=== PATIENT | male | born 1960 | race Caucasian/White ===

== ENCOUNTER 2017-06-20 18:17 | Emergency (ER) | payer SELFPAY ==
[~2017-06-20] VITALS: Ht 175.3 cm; Wt 70.0 kg
[2017-06-20 18:19] VITALS: BP 129/86; PULSE 95; RESP 17; TEMP 98.4; O2SAT 98
[2017-06-20] MEDS ORDERED: HYDR-3533 PO (19:23)
[2017-06-20] MEDS ORDERED: DICL75TA PO (19:23)
[2017-06-20] MEDS ORDERED: ROBA750T PO (19:23)
[2017-06-20] MEDS ORDERED: KETOROLAC TROMETHAMINE 60 MG/2 ML (IM) VIAL IM ONE (19:30)
[2017-06-20] MEDS ORDERED: ACETAMINOPHEN/HYDROcodone 325 MG/5 MG TAB PO ONE (19:30)
--- NOTE | 2017-06-20 19:36 | PD ---
HPI Chief Complaint: Back/ Neck Pain or Injury Time Seen by Provider: 19:30 Travel History International Travel<30 days: No Contact w/Intl Traveler<30days: No Traveled to known affect area: No History of Present Illness HPI 57-year-old white male presents to emergency department with a three-day history of back pain after a trip and fall at the longterm. He states that the lights were out when he had tripped over someone in the longterm twisting his back. He states that he did not have significant pain at the time. He states that after laying down on the floor for several nights this has made his back much more painful. He states that he has pain in the right side of his back down into his leg. He also states he has pain up into his arm. He denies any focal numbness. He denies acute bowel or bladder changes. He denies any history of back problems in the past. Patient states the pain is moderate to severe. Worse with bending and movement. He feels more comfortable standing upright. PFSH Past Medical History Medical History: Denies Significant Hx Tetanus Vaccination: < 5 Years Past Surgical History Narrative Surgical Left forearm fracture with ORIF Social History Alcohol Use: No Tobacco Use: No Allergies-Medications (Allergen,Severity, Reaction): Coded Allergies: No Known Allergies (Unverified , 06/20/17) Reported Meds & Prescriptions Reported Meds & Active Scripts Active Robaxin (Methocarbamol) 750 Mg Tab 1,500 Mg PO TID [address] (Diclofenac Sodium) 75 Mg Tabdr 75 Mg PO BID Lortab (Hydrocodone-Acetaminophen) 5-325 Mg Tab 1 Tab PO Q6H PRN Review of Systems Except as stated in HPI: all other systems reviewed are Neg Physical Exam Narrative GENERAL: Well-developed, well-nourished in no apparent distress. Nontoxic appearing. HEAD: Normocephalic, atraumatic. EYES: Pupils equal round and reactive. Extraocular motions intact. No scleral icterus. No injection or drainage. ENT: Nose clear. Throat without erythema, tonsillar hypertrophy or exudate. Uvula midline. Airway patent. NECK: Trachea midline. Supple, nontender, moves head freely. No central bony tenderness or spasm. CARDIOVASCULAR: Regular rate and rhythm without murmurs, gallops, or rubs. RESPIRATORY: Clear to auscultation. Breath sounds equal bilaterally. No wheezes , rales, or rhonchi. GASTROINTESTINAL: Abdomen soft, non-tender, nondistended. No hepato-splenomegaly , or palpable masses. No guarding. EXTREMITIES: No clubbing, cyanosis, or edema. No joint tenderness. BACK: No central bony tenderness to palpation of dorsal lumbar spine. Patient complains of bilateral paraspinal tenderness down into both buttocks. Flexes forward 70. Heel and toe stand. No saddle anesthesia. Without deformity. No flank tenderness. NEUROLOGICAL: Awake, alert and oriented x 3 .Cranial nerves grossly intact. Motor and sensory grossly within normal limits. Normal speech. Data Data Last Documented VS Vital Signs Date Time Temp Pulse Resp B/P (MAP) Pulse Ox O2 Delivery O2 Flow Rate FiO2 06/20/17 18:19 98.4 95 17 129/86 (100) 98 Orders Orders Ketorolac Inj (Toradol Inj) (06/20/17 19:30) Orphenadrine Inj (Norflex Inj) (06/20/17 21:00) Acetamin-Hydrocod 325-5 Mg ([place] 5-325 (06/20/17 19:30) MDM Medical Decision Making Medical Screen Exam Complete: Yes Emergency Medical Condition: Yes Medical Record Reviewed: Yes Differential Diagnosis MDM: High Differential diagnoses: Fracture, sprain, strain, HNP, nerve or vascular injury Narrative Course This is back strain with lumbar radiculopathy Diagnosis Primary Impression: Lumbar radiculopathy, acute Additional Impression: Lumbar sprain Qualified Codes: S33.5XXA - Sprain of ligaments of lumbar spine, initial encounter Patient Instructions: General Instructions, Narcotic given in the ED Additional Instructions: Rest. Ice for the next 3 days followed by heat . Lortab, Robaxin and Voltaren. Consider physical therapy and follow-up MRI in 1 week if symptoms do not resolve Follow-up with a primary care doctor in one week. Return to the ER for emergencies. Med/Other Pt SpecificInfo: Prescription(s) given Scripts Methocarbamol (Robaxin) 750 Mg Tab 1500 MG PO TID for Muscle Spasm for 10 Days, TAB 0 Refills Prov: Tr Hernandez MD 06/20/[address] (Diclofenac Sodium DR) 75 Mg Tabdr 75 MG PO BID, #20 TAB 0 Refills Prov: Tr Hernandez MD 06/20/17 Hydrocodone-Acetaminophen (Lortab) 5-325 Mg Tab 1 TAB PO Q6H Y for PAIN, #12 TAB 0 Refills Prov: Tr Hernandez MD 06/20/17 Disposition: 01 DISCHARGE HOME Condition: Stable Madi Dumont Jun 20, 2017 19:36
[2017-06-20] MEDS ORDERED: ORPHENADRINE INJ 60 MG/2 ML AMP IM SCH (21:00)
== END 2017-06-20 19:42 | disposition home or self-care (01) ==
LOC: EDTENT 18:17
DX: S33.5XXA Sprain of ligaments of lumbar spine, initial encounter (principal); M54.16 Radiculopathy, lumbar region; W01.0XXA Fall on same level from slipping, tripping and stumbling without subsequent striking against object, initial encounter
CPT/HCPCS: 96372; 99284; J1885; J2360

== ENCOUNTER 2018-07-01 09:22 | Inpatient (IN) ==
[2018-07-01] MEDS ORDERED: Clindamycin 900 mg/NS Premix 900 MG/50 ML PIGGYBACK IV.SIG ONE (09:38)
[2018-07-01] MEDS ORDERED: Tetanus/Diphtheria Toxoid Adult Vaccine Inj 0.5 ML Vial IM ONE (09:38)
--- NOTE | 2018-07-01 09:43 | ED ---
HPI General Chief complaint: Skin/Abscess/Foreign Body Stated complaint: Left leg/left arm swollen Time Seen by Provider: 07/01/18 09:34 Source: patient Mode of arrival: ambulatory Limitations: no limitations History of Present Illness HPI narrative: Patient is a 58-year-old male who presents to the emergency room for evaluation of bug bite with surrounding infection. Patient reports that 3 weeks ago, he was working in the [employer] and thinks that he may have been bitten by a bug. Reports that he noticed increased swelling to his left upper extremity. Patient reports that 2 weeks ago, he was bit on his left lower extremity, reports that the skin is opening up and his whole leg is red. Reports that for the past 2 days, he has been having fevers and chills. Patient is concerned that the bug bite got infected. Patient reports that his tetanus is not up-to-date, he has no allergies to medications. Patient with no other complaints. Related Data Home Medications Medication Instructions Recorded Confirmed No Known Home Medications 07/01/18 07/01/18 Allergies Allergy/AdvReac Type Severity Reaction Status Date / Time No Known Allergies Allergy NONE Uncoded 07/01/18 09:50 Review of Systems ROS: all other systems reviewed are negative PMFSH History History Provided By: Patient Social History Social History Substance History: No History of Abuse Second Hand Smoke Exposure: Yes Smoking Status: Heavy tobacco smoker Tobacco Type: Cigarettes How Often Do You Have a Drink Containing Alcohol: Monthly or less Recent Travel in [facility] within the Last 8 Weeks: No Recent Out of Country Travel within the Last 8 Weeks: No Exam Narrative Exam Narrative: GENERAL: Mild distress SKIN: Focused skin assessment warm/dry. Patient with open skin to his RUE - he has what appears to be a nonfluctuant abscess with surrounding erythema and redness. Patient with RLE: draining abscess with surrounding erythema - he has redness to his right ankle to right knee - cellulitis is circumfrential HEAD: Atraumatic. Normocephalic. EYES: Pupils equal and round. No scleral icterus. No injection or drainage. ENT: No nasal bleeding or discharge. Mucous membranes pink and moist. NECK: Trachea midline. No JVD. CARDIOVASCULAR: Regular rate and rhythm. No murmur appreciated. RESPIRATORY: No accessory muscle use. Clear to auscultation. Breath sounds equal bilaterally. GASTROINTESTINAL: Abdomen soft, non-tender, nondistended. Hepatic and splenic margins not palpable. MUSCULOSKELETAL: No obvious deformities. No clubbing. No cyanosis. No edema. NEUROLOGICAL: Awake and alert. No obvious cranial nerve deficits. Motor grossly within normal limits. Normal speech. PSYCHIATRIC: Appropriate mood and affect; insight and judgment normal. Course Initial Documented Vital Signs Temperature 97.8 F 07/01/18 09:27 Pulse Rate 105 H 07/01/18 09:27 Respiratory Rate 18 07/01/18 09:27 Blood Pressure 159/94 H 07/01/18 09:27 Pulse Oximetry 97 07/01/18 09:27 Last Documented Vital Signs Temperature 97.8 F 07/01/18 09:27 Pulse Rate 105 H 07/01/18 09:27 Respiratory Rate 18 07/01/18 09:27 Blood Pressure 159/94 H 07/01/18 09:27 Pulse Oximetry 97 07/01/18 09:27 Medical Decision Making MDM Narrative Medical decision making narrative: During the course of the patients emergency department visit, the patients history, examination, and differential diagnosis were reviewed with the patient. The patient was placed on a employment office clerk with oximetry and frequent blood pressure monitoring. The patient had an IV access obtained and blood work sent for analysis. The patient was initially provided IV Clindamycin as well as tetanus booster The patients laboratory studies were reviewed and remarkable for: wbc 17.7, hgb 15.4, hct 45.3, platelet 266 sodium 135, chloride 102, potassium 4.2, bun 12, cr 1.29, glucose 89 Patient with SIRS criteria with wbc of 17.7 and tachycardia Patient reports "I feel horrible." Patient will require admission to the hospital. case reviewed with Dr. Smart who accepts pt to service Medical Screen Exam Complete: Yes Emergency Medical Condition: Yes Differential Diagnosis Differential Diagnosis: Abscess with cellulitis Medical Records Medical records reviewed: Yes I reviewed the patient's medical records. Lab Data Lab results reviewed: Yes I reviewed the patient's lab results. Result diagrams: 07/01/18 09:45 07/01/18 09:45 Lab Results 07/01/18 07/01/18 07/01/18 Range/Units 09:45 09:45 09:50 WBC 17.7 H (4.0-11.0) th/mm3 RBC 4.76 (4.50-5.90) mil/mm3 Hgb 15.4 (13.0-17.0) gm/dL Hct 45.3 (39.0-51.0) % MCV 95.1 (80.0-100.0) fL MCH 32.4 (27.0-34.0) pg MCHC 34.0 (32.0-36.0) % RDW 13.5 (11.6-17.2) % Plt Count 266 (150-450) th/mm3 MPV 8.3 (7.0-11.0) fL Neut % (Auto) 81.5 H (16.0-70.0) % Lymph % (Auto) 8.2 L (9.0-44.0) % [place] % (Auto) 9.0 H (0.0-8.0) % Eos % (Auto) 0.8 (0.0-4.0) % Baso % (Auto) 0.5 (0.0-2.0) % Neut # (Auto) 14.5 H (1.8-7.7) th/mm3 Lymph # (Auto) 1.5 (1.0-4.8) th/mm3 [place] # (Auto) 1.6 H (0.0-0.9) th/mm3 Eos # (Auto) 0.1 (0.0-0.4) th/mm3 Baso # (Auto) 0.1 (0.0-0.2) th/mm3 WBC Differential . Differential Comment Auto diff final Sodium 135 L (136-145) meq/L Potassium 4.2 (3.5-5.1) meq/L Chloride 102 (98-107) meq/L Carbon Dioxide 26.7 (21.0-32.0) meq/L Anion Gap 6 (5-15) meq/L BUN 12 (7-18) mg/dL Creatinine 1.29 (0.60-1.30) mg/dL Estimated GFR 57 L (>89) mL/min Random Glucose 89 (74-106) mg/dL Lactic Acid 0.9 (0.4-2.0) mmol/L Calcium 8.8 (8.5-10.1) mg/dL Discharge Plan Discharge Disposition Patient Disposition: 30 Still Patient Discharge Condition Condition: Serious Discharge Details Diagnosis: SIRS (systemic inflammatory response syndrome), Cellulitis Physicians Team ED Provider: Vanna Valdez Primary Care Provider: Primary Care Lissa Lopez Rxs /Orders / Referrals /Forms Prescriptions: No Action No Known Home Medications RF: 0 Status ED Status: Admitted Observation Patient
[2018-07-01 10:04] LABS: Baso # (Auto) 0.1 th/mm3 (0.0-0.2); Baso % (Auto) 0.5 % (0.0-2.0); Eos # (Auto) 0.1 th/mm3 (0.0-0.4); Eos % (Auto) 0.8 % (0.0-4.0); Hematocrit 45.3 % (39.0-51.0); Hemoglobin 15.4 gm/dL (13.0-17.0); Lymph # (Auto) 1.5 th/mm3 (1.0-4.8); Lymph % (Auto) 8.2 % (9.0-44.0); Mean Corpuscular Hemoglobin 32.4 pg (27.0-34.0); Mean Corpuscular Volume 95.1 fL (80.0-100.0); Mean Platelet Volume 8.3 fL (7.0-11.0); Mono # (Auto) 1.6 th/mm3 (0.0-0.9); Neut # (Auto) 14.5 th/mm3 (1.8-7.7); Neut % (Auto) 81.5 % (16.0-70.0); Platelet Count 266 th/mm3 (150-450); Red Blood Count 4.76 mil/mm3 (4.50-5.90); Red Cell Distribution Width 13.5 % (11.6-17.2); White Blood Count 17.7 th/mm3 (4.0-11.0)
[2018-07-01 10:20] LABS: Calcium 8.8 mg/dL (8.5-10.1); Carbon Dioxide 26.7 meq/L (21.0-32.0); Potassium 4.2 meq/L (3.5-5.1)
[2018-07-01] MEDS ORDERED: Morphine Sulfate Inj 2 MG/ML Vial IV.PUSH ONE (10:29)
[2018-07-01] MEDS ORDERED: Ketorolac Inj 30 MG/ML (IVP) Vial IV.PUSH ONE (11:35)
[2018-07-01] MEDS ORDERED: Vancomycin Inj 1 GM/200 ML PIGGYBACK IV.SIG ONE (12:24)
[2018-07-01] MEDS ORDERED: Vancomycin Consult Pharmacy OTHER PRN (12:30)
--- NOTE | 2018-07-01 12:40 | P.HP ---
History of Present Illness Primary Care Physician: No Primary Care Physician Chief Complaint: left leg swelling History of Present Illness: patient is a 58 y/o male with no significant past medical history who presented to ER with swelling , redness and pain to the left leg. 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 he says that he noticed some swelling and redness over the lateral aspect of his left leg about a week ago. but it started to get worse two days ago and he started to have moderate to severe pain at the site along with fever and chills. he says that ' it started to drain on its own'.he says that he had some infection of the left elbow about a month ago which seems to be healing. Review of Systems All other systems reviewed negative except as stated in HPI PMFSH - History History Provided By: Patient - Medical History Medical History: Medical History (Last Updated 07/01/18 @ 12:36 by Micaela Vee MD) Patient denies significant medical history - Family History Family History: Family History (Last Updated 07/01/18 @ 12:37 by Micaela Vee MD) Other Patient denies medical problems - Tobacco History Second Hand Smoke Exposure: Yes Tobacco Use In Past 30 Days: Yes Smoking Status: Heavy tobacco smoker Tobacco Type: Cigarettes - Alcohol History How Often Do You Have a Drink Containing Alcohol: Monthly or less - Substance Use History Substance History: No History of Abuse - Travel History Recent Travel in the [place] Within the Last 8 Weeks: No Recent Travel Out of the Country Within the Last 8 Weeks: No - Immunization History Tetanus Immunization: >5 Years Hx Influenza Vaccine This Season: No Medications and Allergies Active Medications: Active Medications Sodium Chloride (Ns Flush) 2 ml IV.FLUSH PRN PRN PRN Reason: FLUSH AFTER USING IV ACCESS Last Admin: 07/01/18 09:50 Dose: 2 ml Allergies Allergy/AdvReac Type Severity Reaction Status Date / Time No Known Allergies Allergy NONE Uncoded 07/01/18 09:50 Home Medications Medication Instructions Recorded Confirmed Type No Known Home Medications 07/01/18 07/01/18 History Exam Vital signs: Vital Signs 07/01/18 09:27 07/01/18 11:41 Temperature 97.8 F Pulse Rate 105 H Respiratory Rate 18 16 Blood Pressure 159/94 H Pulse Oximetry 97 Intake & Output 06/30/18 07/01/18 07/01/18 18:59 06:59 18:59 Intake Total 50 / 50 Balance 50 / 50 Weight 68.039 kg Intake: IV 50 / 50 Cleocin 900 mg/NS Premix 900 mg 50 / 50 In 50 ml @ 100 mls/hr IV.SIG ONCE ONE Rx#:[id number] - Constitutional no acute distress - Routine HEENT Exam Eye: Present: PERRL - Routine Neck Exam Present: supple - Routine Respiratory Exam Present: CTA bilaterally - Routine Cardiovascular Exam Present: RRR - Routine Abdominal Exam Present: soft - Routine Extremities Exam Comments: swelling of the left leg and left elbow. - Routine Skin Exam Present: erythema (over the left leg and mild erythema over the left elbow.) - Routine Neurological Exam Present: alert, oriented X3 Results - Labs CBC & Chem 7: 07/01/18 09:45 07/01/18 09:45 Labs: Laboratory Results - last 24 hr 07/01/18 07/01/18 07/01/18 09:45 09:45 09:50 WBC 17.7 H RBC 4.76 Hgb 15.4 Hct 45.3 MCV 95.1 MCH 32.4 MCHC 34.0 RDW 13.5 Plt Count 266 MPV 8.3 Neut % (Auto) 81.5 H Lymph % (Auto) 8.2 L [place] % (Auto) 9.0 H Eos % (Auto) 0.8 Baso % (Auto) 0.5 Neut # (Auto) 14.5 H Lymph # (Auto) 1.5 [place] # (Auto) 1.6 H Eos # (Auto) 0.1 Baso # (Auto) 0.1 WBC Differential . Differential Comment Auto diff final Sodium 135 L Potassium 4.2 Chloride 102 Carbon Dioxide 26.7 Anion Gap 6 BUN 12 Creatinine 1.29 Estimated GFR 57 L Random Glucose 89 Lactic Acid 0.9 Calcium 8.8 Caprini VTE Risk Assessment Caprini VTE Risk Assessment: No/Low Risk (score <= 1) Caprini Risk Assessment Model: Point Value = 1 Point Value = 2 Point Value = 3 Point Value = 5 Age 41-60 Minor surgery BMI > 25 kg/m2 Swollen legs Varicose veins or History of unexplained or recurrent spontaneous Oral contraceptives or hormone replacement Sepsis (< 1 month) Serious lung disease, including pneumonia (< 1 month) Abnormal pulmonary function Acute myocardial infarction Congestive heart failure (< 1 month) History of inflammatory bowel disease Medical patient at bed rest Age 61-74 Arthroscopic surgery Major open surgery (> 45 min) Laparoscopic surgery (> 45 min) Malignancy Confined to bed (> 72 hours) Immobilizing plaster cast Central venous access Age >= 75 History of VTE Family history of VTE Factor V Leiden Prothrombin [id number] Lupus anticoagulant Anticardiolipin antibodies Elevated serum homocysteine Heparin-induced thrombocytopenia Other congenital or acquired thrombophilia Stroke (< 1 month) Elective arthroplasty Hip, pelvis, or leg fracture Acute spinal cord injury (< 1 month) Prophylaxis Regimen: Total Risk Factor Score Risk Level Prophylaxis Regimen 0-1 Low Early ambulation 2 Moderate Order ONE of the following: *Sequential Compression Device (SCD) *Heparin 5000 units SQ BID 3-4 Higher Order ONE of the following medications: *Heparin 5000 units SQ TID *Enoxaparin/Lovenox 40 mg SQ daily (WT < 150 kg, CrCl > 30 mL/min) *Enoxaparin/Lovenox 30 mg SQ daily (WT < 150 kg, CrCl > 10-29 mL/min) *Enoxaparin/Lovenox 30 mg SQ BID (WT < 150 kg, CrCl > 30 mL/min) AND/OR *Sequential Compression Device (SCD) 5 or more Highest Order ONE of the following medications: *Heparin 5000 units SQ TID (Preferred with Epidurals) *Enoxaparin/Lovenox 40 mg SQ daily (WT < 150 kg, CrCl > 30 mL/min) *Enoxaparin/Lovenox 30 mg SQ daily (WT < 150 kg, CrCl > 10-29 mL/min) *Enoxaparin/Lovenox 30 mg SQ BID (WT < 150 kg, CrCl > 30 mL/min) AND *Sequential Compression Device (SCD) Assessment and Plan - Plan A/P -cellulitis of the left leg start on broad-spectrum IV antibiotics- keep the left leg elevated- will continue with pain control and obtain the cultures. will check soft tissue sonogram of the left leg. received Tetanus vaccination in ER. Discussed Condition With: ER physician and the patient. Discharge Planning: pending clinical course.
--- NOTE | 2018-07-01 13:07 | US ---
EXAM DATE: 07/01/2018 12:52 PM EDT AGE/SEX: 58 years / Male INDICATIONS: Left leg abscess. CLINICAL DATA: This is the patient's initial encounter. Patient reports that signs and symptoms have been present for 4 - 6 days and indicates a pain score of 10/10. MEDICAL/SURGICAL HISTORY: . Left leg abscess. None. COMPARISON: No prior exams available for comparison. FINDINGS: Ultrasound of the left lateral calf inferior to the knee is performed. There is diffuse subcutaneous edema. A 2.2 x 0.5 x 1.5 cm focal fluid collection is seen in subcutaneous tissues which may reflect a small abscess. CONCLUSION: 1. Diffuse subcutaneous edema with more focal fluid collection as above which can represent a develo ping abscess. Electronically signed by: Apolinar Anthony MD 07/01/2018 1:06 PM EDT
[2018-07-01] MEDS: Piperacil/Tazo 3.375 GM Premix 50 ML IV.SIG SCH ×2 (13:49→20:40)
[2018-07-01] MEDS: Vancomycin Inj 1,000 MG in Sodium Chlor 0.9% Inj 250 ML IV.SIG SCH (15:04)
[2018-07-01] MEDS: Ketorolac Inj 30 MG/ML (IVP) Vial IV.PUSH PRN ×2 (15:12→21:18)
[2018-07-01] MEDS: ALPRAZolam 0.25 MG Tablet PO PRN (15:52)
[2018-07-02] MEDS: Vancomycin Inj 1,000 MG in Sodium Chlor 0.9% Inj 250 ML IV.SIG SCH ×2 (01:13→14:18)
[2018-07-02] MEDS: Piperacil/Tazo 3.375 GM Premix 50 ML IV.SIG SCH ×4 (02:53→21:06)
[2018-07-02] MEDS: Ketorolac Inj 30 MG/ML (IVP) Vial IV.PUSH PRN ×2 (02:54→21:04)
[2018-07-02 06:07] LABS: Baso # (Auto) 0.1 th/mm3 (0.0-0.2); Baso % (Auto) 0.7 % (0.0-2.0); Eos # (Auto) 0.4 th/mm3 (0.0-0.4); Eos % (Auto) 4.3 % (0.0-4.0); Hemoglobin 13.8 gm/dL (13.0-17.0); Lymph # (Auto) 1.1 th/mm3 (1.0-4.8); Lymph % (Auto) 11.5 % (9.0-44.0); Mean Corpuscular HGB Conc 33.6 % (32.0-36.0); Mean Corpuscular Hemoglobin 32.5 pg (27.0-34.0); Mean Corpuscular Volume 96.9 fL (80.0-100.0); Mean Platelet Volume 9.2 fL (7.0-11.0); Mono # (Auto) 0.8 th/mm3 (0.0-0.9); Mono % (Auto) 8.8 % (0.0-8.0); Neut % (Auto) 74.7 % (16.0-70.0); Platelet Count 198 th/mm3 (150-450); Red Blood Count 4.23 mil/mm3 (4.50-5.90); Red Cell Distribution Width 13.5 % (11.6-17.2); White Blood Count 9.4 th/mm3 (4.0-11.0)
[2018-07-02] MEDS ORDERED: Sodium Chloride 0.9% 2 ML Flush PRN IV.FLUSH (10:24)
[2018-07-02] MEDS: Sod Chloride 0.9% Inj 1,000 ML IV.CONT SCH (10:26)
[2018-07-02] MEDS: Acetaminophen 325 MG Tablet PO PRN (10:35)
--- NOTE | 2018-07-02 12:01 | P.PN ---
Subjective Interval history: Follow up on patient with LLE cellulitis/abscess. Patient seen and examined. Patient complaining of LLE pain. He thinks the swelling has improved. He states the pain is the same. He states he has sweats but has not been running a fever. He thinks he was bit by a spider. He works in construction. Physical Exam Vital signs: Vital Signs 07/01/18 11:41 07/01/18 13:48 07/01/18 16:00 Temperature 97.8 F Pulse Rate 69 Respiratory Rate 16 16 16 Blood Pressure 118/72 Pulse Oximetry 100 07/01/18 20:00 07/02/18 00:00 07/02/18 04:00 Temperature 98.7 F 97.9 F 97.6 F Pulse Rate 76 60 65 Respiratory Rate 18 18 18 Blood Pressure 127/67 116/64 105/63 Pulse Oximetry 99 98 99 07/02/18 08:35 Temperature 97.7 F Pulse Rate 65 Respiratory Rate 18 Blood Pressure 139/87 Pulse Oximetry Intake & Output 07/01/18 07/02/18 07/02/18 18:59 06:59 18:59 Intake Total 350 / 350 3850 / 3850 50 / 50 Balance 350 / 350 3850 / 3850 50 / 50 Weight 68.039 kg Intake: IV 350 / 350 350 / 350 50 / 50 Cleocin 900 mg/NS Premix 900 mg 50 / 50 In 50 ml @ 100 mls/hr IV.SIG ONCE ONE Rx#:[id number] Zosyn 3.375 GM Premix 50 ML @ 50 / 50 100 / 100 50 / 50 100 mls/hr IV.SIG Q6H [facility] Rx#: [id number] Vancomycin Inj 1,000 MG In NS 250 / 250 250 / 250 Inj 250 ML @ 250 mls/hr IV.SIG Q12H [facility] Rx#:[id number] Oral 3500 / 3500 Other: # Voids 2 4 Narrative: GENERAL: Thin well developed male patient, awake and alert. In no acute distress. SKIN: Warm and dry. +open wound left lower leg over lateral aspect of the coy , +erythema, warmth and edema, tender to palpation HEAD: Atraumatic. Normocephalic. EYES: Pupils equal and round. No scleral icterus. No injection or drainage. ENT: No nasal bleeding or discharge. Mucous membranes pink and moist. NECK: Trachea midline. CARDIOVASCULAR: Regular rate and rhythm. RESPIRATORY: No accessory muscle use. Clear to auscultation. Breath sounds equal bilaterally. GASTROINTESTINAL: Abdomen soft, non-tender, nondistended. +BS. MUSCULOSKELETAL: Extremities without clubbing, cyanosis, or edema. No obvious deformities. NEUROLOGICAL: Awake and alert. No obvious cranial nerve deficits. Motor grossly within normal limits. Able to move all extremities spontaneously. Normal speech. PSYCHIATRIC: Appropriate mood and affect; insight and judgment normal. Results - Labs CBC & Chem 7: 07/02/18 04:25 07/01/18 09:45 Laboratory Results - last 24 hr 07/02/18 04:25 WBC 9.4 RBC 4.23 L Hgb 13.8 Hct 41.0 MCV 96.9 MCH 32.5 MCHC 33.6 RDW 13.5 Plt Count 198 MPV 9.2 Neut % (Auto) 74.7 H Lymph % (Auto) 11.5 [place] % (Auto) 8.8 H Eos % (Auto) 4.3 H Baso % (Auto) 0.7 Neut # (Auto) 7.0 Lymph # (Auto) 1.1 [place] # (Auto) 0.8 Eos # (Auto) 0.4 Baso # (Auto) 0.1 WBC Differential . Differential Comment Auto diff final Microbiology 07/01/18 09:50 Blood - Peripheral Aerobic Blood Culture - Preliminary No growth in 1 day 07/01/18 09:50 Blood - Peripheral Anaerobic Blood Culture - Preliminary No growth in 1 day 07/01/18 09:45 Blood - Peripheral Aerobic Blood Culture - Preliminary No growth in 1 day 07/01/18 09:45 Blood - Peripheral Anaerobic Blood Culture - Preliminary No growth in 1 day 07/01/18 13:55 Fluid - Other Gram Stain - Final - Imaging Impressions Lower Extremity Ultrasound 07/01/18 00:00 CONCLUSION: 1. Diffuse subcutaneous edema with more focal fluid collection as above which can represent a developing abscess. Assessment and Plan - Plan 58 y/o male with no significant past medical history who presented to ER with swelling , redness and pain to the left leg. Sepsis with tachycardia, leukocytosis with white count of 17.7 secondary to LLE abscess -white count improved to 9.4 -patient is afebrile, continue to monitor vitals -continue on IV antibiotics LLE cellulitis/abscess, ? spider bite soft tissue US diffuse subcutaneous edema with focal fluid collection -GS consulted, appreciate assistance. Make NPO. IVF ordered. -Continue on IV Zosyn and Vancomycin -wound culture pending, follow up on results -keep left leg elevated -pain medication with bowel regimen Hyponatremia, mild -monitor Na level as indicated DVT prophylaxis -will hold on chemical prophylaxis for possible I&D procedure
[2018-07-02 16:51] LABS: Amphetamine Screen,Urine Neg (Neg); Barbiturate Screen,Urine Neg (Neg); Cannabinoid Screen,Urine Neg (Neg); Cocaine Screen,Urine Pos (Neg)
[2018-07-02 16:58] LABS: Opiate Screen,Urine Neg (Neg)
--- NOTE | 2018-07-02 17:02 | P.PNVS ---
Subjective Subjective/Hospital Course: 07/02/2018 Patient states that about 4-5 days ago he was bitten by some insect and started developing swelling in the left lower extremity which is now pretty extensive and started to drain purulent material as the consultation Physical examination reveals diffuse cellulitis of the left lower extremity lateral aspect in the area of skin erosion with underlying abscess that is already draining. Abscesses is measuring about 1 x 3 cm longitudinal groove appearing structure and going to subcutaneous tissue There is some skin tissue bridging at and this is been open at the bedside and drained Area irrigated with peroxide and packed Patient should remain on intravenous antibiotics till cultures of back and depending on the cultures this can be adjusted Wound care orders given Most likely this is going to heal on its own but will take a while, but patient might need additional debridement if infected area does not start healing will follow Objective Vital Signs / I&O: Vital Signs 07/01/18 20:00 07/02/18 00:00 07/02/18 04:00 Temperature 98.7 F 97.9 F 97.6 F Pulse Rate 76 60 65 Respiratory Rate 18 Blood Pressure 127/67 116/64 105/63 Pulse Oximetry 99 98 99 07/02/18 08:35 07/02/18 11:44 07/02/18 15:52 Temperature 97.7 F 97.8 F 97.8 F Pulse Rate 65 80 75 Respiratory Rate 18 Blood Pressure 139/87 131/82 156/91 H Pulse Oximetry 100 100 Intake & Output 07/01/18 07/02/18 07/02/18 18:59 06:59 18:59 Intake Total 350 / 350 3850 / 3850 350 / 350 Balance 350 / 350 3850 / 3850 350 / 350 Weight 68.039 kg Intake: IV 350 / 350 350 / 350 350 / 350 Cleocin 900 mg/NS Premix 900 mg 50 / 50 In 50 ml @ 100 mls/hr IV.SIG ONCE ONE Rx#:[id number] Zosyn 3.375 GM Premix 50 ML @ 50 / 50 100 / 100 100 / 100 100 mls/hr IV.SIG Q6H [facility] Rx#: [id number] Vancomycin Inj 1,000 MG In NS 250 / 250 250 / 250 250 / 250 Inj 250 ML @ 250 mls/hr IV.SIG Q12H [facility] Rx#:[id number] Oral 3500 / 3500 Other: # Voids 2 4 Laboratory Results - last 24 hr 07/02/18 04:25 WBC 9.4 RBC 4.23 L Hgb 13.8 Hct 41.0 MCV 96.9 MCH 32.5 MCHC 33.6 RDW 13.5 Plt Count 198 MPV 9.2 Neut % (Auto) 74.7 H Lymph % (Auto) 11.5 Early % (Auto) 8.8 H Eos % (Auto) 4.3 H Baso % (Auto) 0.7 Neut # (Auto) 7.0 Lymph # (Auto) 1.1 Early # (Auto) 0.8 Eos # (Auto) 0.4 Baso # (Auto) 0.1 WBC Differential . Differential Comment Auto diff final Microbiology 07/01/18 13:55 Gram Stain - Final Fluid - Other Wound Culture - Preliminary S. aureus MRSA Group A beta Strep 07/01/18 09:50 Aerobic Blood Culture - Preliminary Blood - Peripheral No growth in 1 day Anaerobic Blood Culture - Preliminary No growth in 1 day 07/01/18 09:45 Aerobic Blood Culture - Preliminary Blood - Peripheral No growth in 1 day Anaerobic Blood Culture - Preliminary No growth in 1 day Impressions Lower Extremity Ultrasound 07/01/18 00:00 CONCLUSION: 1. Diffuse subcutaneous edema with more focal fluid collection as above which can represent a developing abscess.
[2018-07-02] MEDS: Sodium Chloride 0.9% 2 ML Flush BID IV.FLUSH SCH (21:06)
[2018-07-02] MEDS: Senna/Docusate Sodium 8.6/50 MG Tablet PO SCH (21:07)
[2018-07-03] MEDS: Sod Chloride 0.9% Inj 1,000 ML IV.CONT SCH ×2 (00:05→14:12)
[2018-07-03] MEDS: Vancomycin Inj 1,000 MG in Sodium Chlor 0.9% Inj 250 ML IV.SIG SCH ×2 (02:17→15:03)
[2018-07-03] MEDS: Piperacil/Tazo 3.375 GM Premix 50 ML IV.SIG SCH ×4 (03:28→21:04)
[2018-07-03] MEDS: Ketorolac Inj 30 MG/ML (IVP) Vial IV.PUSH PRN ×2 (07:48→16:19)
[2018-07-03] MEDS: Sodium Chloride 0.9% 2 ML Flush BID IV.FLUSH SCH ×2 (08:01→21:12)
[2018-07-03] MEDS: Senna/Docusate Sodium 8.6/50 MG Tablet PO SCH (08:29)
--- NOTE | 2018-07-03 09:02 | P.PNWCN ---
Wound Care Nurse Consult Additional information: Patient not seen today for wound management of LLE. Patient was seen on 2017 by Doctor Calvin for I&D of LLE abscess. Doctor Calvin wrote wound care orders post I&D. Please Defer all concerns over wound to LLE and orders for wound care to Doctor Cavlin. Wound care inpatient is signing off.
--- NOTE | 2018-07-03 10:06 | P.PN ---
Subjective Interval history: Follow up on patient with LLE cellulitis/abscess. Patient seen and examined. Patient complaining of poorly controlled pain in the LLE especially in the left knee. He is not sure whether or not the left leg is getting better. He denies any fever or chills. He denies any chest pain or shortness of breath. Discussed with patient testing positive for cocaine. Patient denies any IV drug use. Physical Exam Vital signs: Vital Signs 07/02/18 11:44 07/02/18 15:52 07/02/18 20:00 Temperature 97.8 F 97.8 F 97.6 F Pulse Rate 80 75 85 Respiratory Rate 18 18 16 Blood Pressure 131/82 156/91 H 130/71 Pulse Oximetry 100 100 98 07/03/18 04:00 07/03/18 07:58 Temperature 97.7 F Pulse Rate 62 63 Respiratory Rate 20 16 Blood Pressure 143/79 H 136/80 Pulse Oximetry 96 97 Intake & Output 07/02/18 07/03/18 07/03/18 18:59 06:59 18:59 Intake Total 350 / 350 1350 / 1350 50 / 50 Output Total 600 / 600 Balance 350 / 350 750 / 750 50 / 50 Weight 63.5 kg Intake: IV 350 / 350 1350 / 1350 50 / 50 NS Inj 1,000 ML @ 75 mls/hr IV. 1000 / 1000 CONT .[id number] [facility] Rx#:[id number] Zosyn 3.375 GM Premix 50 ML @ 100 / 100 100 / 100 50 / 50 100 mls/hr IV.SIG Q6H [facility] Rx#: [id number] Vancomycin Inj 1,000 MG In NS 250 / 250 250 / 250 Inj 250 ML @ 250 mls/hr IV.SIG Q12H [facility] Rx#:[id number] Output: Urine 600 / 600 Other: # Voids 4 Narrative: GENERAL: Thin well developed male patient, INAD. Awake and alert. SKIN: Warm and dry. +open wound left lower leg over lateral aspect of the coy , +erythema, warmth and edema, tender to palpation, appears mildly improved. HEENT: Atraumatic. Normocephalic. Pupils equal and round. No scleral icterus. No injection or drainage. No nasal bleeding or discharge. Mucous membranes pink and moist. NECK: Trachea midline. CARDIOVASCULAR: Regular rate and rhythm. RESPIRATORY: No accessory muscle use. Clear to auscultation. Breath sounds equal bilaterally. GASTROINTESTINAL: Abdomen soft, non-tender, nondistended. +BS. MUSCULOSKELETAL: Extremities without clubbing, cyanosis, or edema. No obvious deformities. NEUROLOGICAL: Awake and alert. No obvious cranial nerve deficits. Motor grossly within normal limits. Able to move all extremities spontaneously. Normal speech. PSYCHIATRIC: Appropriate mood and affect. Results - Labs CBC & Chem 7: 07/02/18 04:25 07/01/18 09:45 Laboratory Results - last 24 hr 07/02/18 15:56 Urine Opiates Screen Neg Ur Barbiturates Screen Neg Ur Amphetamines Screen Neg U Benzodiazepines Scrn Neg Urine Cocaine Screen Pos H U Cannabinoids Screen Neg Microbiology 07/01/18 13:55 Fluid - Other Gram Stain - Final 07/01/18 13:55 Fluid - Other Wound Culture - Final S. aureus MRSA Group A beta Strep 07/01/18 09:50 Blood - Peripheral Aerobic Blood Culture - Preliminary No growth in 1 day 07/01/18 09:50 Blood - Peripheral Anaerobic Blood Culture - Preliminary No growth in 1 day 07/01/18 09:45 Blood - Peripheral Aerobic Blood Culture - Preliminary No growth in 1 day 07/01/18 09:45 Blood - Peripheral Anaerobic Blood Culture - Preliminary No growth in 1 day Assessment and Plan - Plan 58 y/o male with no significant past medical history who presented to ER with swelling , redness and pain to the left leg. Sepsis with tachycardia, leukocytosis with white count of 17.7 secondary to LLE abscess, resolved -white count improved to 9.4 -patient is afebrile, continue to monitor vitals -continue on IV antibiotics LLE cellulitis/abscess, ? spider bite soft tissue US diffuse subcutaneous edema with focal fluid collection Wound cx + MRSA and Group A beta Strep -General surgery following, appreciate assistance. Continue wound care per Dr. Calvin's instructions. -Consult infectious disease, appreciate assistance -Continue on IV Zosyn and Vancomycin -keep left leg elevated -obtain xray left tibia to r/o underlying osteomyelitis. Obtain x-ray of the left knee. -pain medication with bowel regimen. Ultram prn. Hyponatremia, mild -monitor Na level as indicated Cocaine use -Discussed cessation of illicit drug use DVT prophylaxis -Heparin Discussed Condition With: patient, nursing staff, Dr. Yoo Discharge Planning: Not ready for discharge.
[2018-07-03] MEDS ORDERED: Pharmacy Ordered Lab Info OTHER ONE (13:45)
--- NOTE | 2018-07-03 14:53 | XR ---
EXAM DATE: 07/03/2018 12:00 AM EDT AGE/SEX: 58 years / Male INDICATIONS: Pain in left knee joint, abscess inferior to left knee, possible spider bite CLINICAL DATA: This is the patient's subsequent encounter. Patient reports that signs and symptoms h ave been present for 4 - 6 days and indicates a pain score of 10/10. MEDICAL/SURGICAL HISTORY: . insect bite, abbess, pain and swelling left lower leg None. COMPARISON: C, TIBIA FIBULA LEFT 2V, 07/03/2018. . FINDINGS: Bony structures are intact and in normal alignment. Joints are intact without dislocation or signifi cant arthropathy. Osseous density is normal. Soft tissues are unremarkable. No evidence of a joint effusion. No radiopaque foreign bodies seen. CONCLUSION: Unremarkable plain films of the left knee. Electronically signed by: Stephan Gonzalez MD 07/03/2018 2:52 PM EDT
--- NOTE | 2018-07-03 14:59 | XR ---
EXAM DATE: 07/03/2018 12:00 AM EDT AGE/SEX: 58 years / Male INDICATIONS: Insect bite, soft tissue swelling and pain left lower leg, evaluate for underlying oste omyelitis CLINICAL DATA: This is the patient's subsequent encounter. Patient reports that signs and symptoms h ave been present for 4 - 6 days and indicates a pain score of 10/10. MEDICAL/SURGICAL HISTORY: . abscess left leg None. COMPARISON: No prior exams available for comparison. FINDINGS: Bony structures are intact and in normal alignment. Osseous density is normal. . Small focal subcuta neous emphysema at the insect bite area. No radiopaque foreign bodies seen. CONCLUSION: The bony structures are grossly intact. Small subcutaneous emphysema at the insect bite site Electronically signed by: Stephan Gonzalez MD 07/03/2018 2:57 PM EDT
--- NOTE | 2018-07-03 15:51 | P.CONID ---
History of Present Illness Service: ID Consult date: 07/03/18 Requesting Physician: Ana Rosa Garcia Reason for Consult: LLE abscess, s/p I&D, wound cx +MRSA and strept Primary Care Provider: No Primary Care Physician Chief Complaint: left leg swelling History of Present Illness: 58 yo male no significant past medical history developped swelling , redness and pain to the left leg over one week. H/o working outside and insect/spider bite prior. + some fever and chills. It was I+D @ b/s in ER , improved on current abx (zosyn, vancomycin) Grew MRSA, GAS from the wound Review of Systems All other systems reviewed negative except as stated in HPI PMFSH - History History Provided By: Patient - Medical / Surgical Hx Neg / Unobtainable Surgical History: No Previous Surgery - Medical History Medical History: Medical History (Last Reviewed 07/04/18 @ 14:00 by Ragini Valle MD) Patient denies significant medical history - Family History Family History: Family History (Last Reviewed 07/04/18 @ 14:00 by Ragini Valle MD) Other Patient denies medical problems - Social History I have reviewed the patient's Social History: Yes - Tobacco History Second Hand Smoke Exposure: Yes Tobacco Use In Past 30 Days: Yes Smoking Status: Current every day smoker Tobacco Type: Cigarettes - Alcohol History How Often Do You Have a Drink Containing Alcohol: 2 to 4 times a month - Substance Use History Substance History: No History of Abuse - Travel History Recent Travel in the [place] Within the Last 8 Weeks: No Recent Travel Out of the Country Within the Last 8 Weeks: No - Immunization History Tetanus Immunization: >5 Years Hx Influenza Vaccine This Season: No Medications and Allergies Active Medications: Active Medications Acetaminophen (Tylenol) 650 mg PO Q4H PRN PRN Reason: fever/pain 1-10 Last Admin: 07/02/18 10:35 Dose: 650 mg Alprazolam (Xanax) 0.125 mg PO Q6H PRN PRN Reason: anxiety Last Admin: 07/01/18 15:52 Dose: 0.125 mg Heparin Sodium (Porcine) (Heparin Inj) 5,000 units SQ Q12HR [facility] Piperacillin/Tazobactam/Dextrose (Zosyn 3.375 Gm Premix) 50 mls @ 100 mls/hr IV.SIG Q6H [facility] Last Infusion: 07/03/18 14:03 Dose: Infused Vancomycin HCl 1,250 mg/ (Sodium Chloride) 262.5 mls @ 250 mls/hr IV.SIG Q12H [facility] Ketorolac Tromethamine (Toradol Inj) 15 mg IV.PUSH Q6H PRN PRN Reason: breakthrough pain Stop: 07/06/18 12:30 Last Admin: 07/03/18 07:48 Dose: 15 mg Miscellaneous Information ([facility] Ordered Lab Info) 1 each OTHER ONCE ONE Stop: 07/05/18 13:46 Pharmacy Profile Note (Vancomycin Consult Pharmacy) 1 each OTHER UNSCH PRN PRN Reason: Pharmacy to dose Senna/Docusate Sodium (Jaja-Colace) 1 tab PO BID [facility] Last Admin: 07/03/18 08:29 Dose: Not Given Sodium Chloride (Ns Flush) 2 ml IV.FLUSH BID [facility] Last Admin: 07/03/18 08:01 Dose: Not Given Sodium Chloride (Ns Flush) 2 ml IV.FLUSH PRN PRN PRN Reason: FLUSH AFTER USING IV ACCESS Tramadol HCl (Ultram) 50 mg PO Q8H PRN PRN Reason: PAIN SCALE 1 TO 10 Last Admin: 07/03/18 13:29 Dose: 50 mg Allergies Allergy/AdvReac Type Severity Reaction Status Date / Time No Known Allergies Allergy NONE Uncoded 07/01/18 09:50 Home Medications Medication Instructions Recorded Confirmed Type No Known Home Medications 07/01/18 07/01/18 History Exam Vital signs: Vital Signs 07/02/18 15:52 07/02/18 20:00 07/03/18 04:00 Temperature 97.8 F 97.6 F Pulse Rate 75 85 62 Respiratory Rate 18 16 20 Blood Pressure 156/91 H 130/71 143/79 H Pulse Oximetry 100 98 96 07/03/18 07:58 07/03/18 12:00 07/03/18 12:17 Temperature 97.7 F 97.8 F Pulse Rate 63 60 Respiratory Rate 16 16 18 Blood Pressure 136/80 133/77 Pulse Oximetry 97 96 07/03/18 14:10 Temperature Pulse Rate Respiratory Rate 18 Blood Pressure Pulse Oximetry Intake & Output 07/02/18 07/03/18 07/03/18 18:59 06:59 18:59 Intake Total 350 / 350 1350 / 1350 810 / 810 Output Total 600 / 600 Balance 350 / 350 750 / 750 810 / 810 Weight 63.5 kg Intake: IV 350 / 350 1350 / 1350 810 / 810 NS Inj 1,000 ML @ 75 mls/hr IV. 1000 / 1000 710 / 710 CONT .[id number] [facility] Rx#:[id number] Zosyn 3.375 GM Premix 50 ML @ 100 / 100 100 / 100 100 / 100 100 mls/hr IV.SIG Q6H [facility] Rx#: [id number] Vancomycin Inj 1,000 MG In NS 250 / 250 250 / 250 Inj 250 ML @ 250 mls/hr IV.SIG Q12H [facility] Rx#:[id number] Output: Urine 600 / 600 Other: # Voids 4 Date of Last Bowel Movement 07/03/18 - Constitutional no acute distress, thin - Routine HEENT Exam Head: Present: normocephalic, atraumatic Eye: Present: EOMI, PERRL ENT: Present: mucous membranes moist, oropharynx clear. Absent: dentition normal - Routine Neck Exam Present: supple, full ROM. Absent: JVD - Routine Respiratory Exam Present: CTA bilaterally. Absent: accessory muscle use, respiratory distress, rhonchi - Routine Cardiovascular Exam Present: RRR, S1, S2. Absent: murmur, gallop, rubs - Routine Abdominal Exam Present: soft, normoactive bowel sounds. Absent: tenderness, distended, organomegaly, mass - Routine Extremities Exam Absent: cyanosis, clubbing, edema - Routine Skin Exam Comments: L calf open deep wound with purulent grainage and some necrotic tissue present +erythema surrounding no ascending lymphangits + ipsilateral lymphadenopathy - Routine Neurological Exam Present: alert, oriented X3, CN II-XII intact, moving all extremities, vision grossly intact, hearing grossly intact, normal speech - Routine Psychiatric Exam Present: normal affect, normal thought process, cooperative Results - Labs CBC & Chem 7: 07/02/18 04:25 07/04/18 05:50 Labs: Laboratory Results - last 24 hr 07/02/18 07/03/18 15:56 14:19 Vancomycin Trough 8.9 Urine Opiates Screen Neg Ur Barbiturates Screen Neg Ur Amphetamines Screen Neg U Benzodiazepines Scrn Neg Urine Cocaine Screen Pos H U Cannabinoids Screen Neg - Imaging Impressions Knee X-Ray 07/03/18 00:00 CONCLUSION: Unremarkable plain films of the left knee. Tibia/Fibula X-Ray 07/03/18 00:00 CONCLUSION: The bony structures are grossly intact. Small subcutaneous emphysema at the insect bite site Assessment and Plan - Plan ABscess, sp bedside drainage infected with GAS, MRSA cont current abx fu clx untill final
[2018-07-03] MEDS: ALPRAZolam 0.25 MG Tablet PO PRN (16:12)
[2018-07-03] MEDS: Heparin - SQ 10,000 UNITS/ML Vial SQ SCH (21:05)
--- NOTE | 2018-07-03 21:42 | P.PNVS ---
Subjective Subjective/Hospital Course: 07/02/2018 Patient states that about 4-5 days ago he was bitten by some insect and started developing swelling in the left lower extremity which is now pretty extensive and started to drain purulent material as the consultation Physical examination reveals diffuse cellulitis of the left lower extremity lateral aspect in the area of skin erosion with underlying abscess that is already draining. Abscesses is measuring about 1 x 3 cm longitudinal groove appearing structure and going to subcutaneous tissue There is some skin tissue bridging at and this is been open at the bedside and drained Area irrigated with peroxide and packed Patient should remain on intravenous antibiotics till cultures of back and depending on the cultures this can be adjusted Wound care orders given Most likely this is going to heal on its own but will take a while, but patient might need additional debridement if infected area does not start healing will follow 07/03/2018 Cellulitis less prominent Swelling decreased should continue antibiotics Objective Vital Signs / I&O: Vital Signs 07/03/18 04:00 07/03/18 07:58 07/03/18 12:00 Temperature 97.7 F 97.8 F Pulse Rate 62 63 60 Respiratory Rate 20 16 16 Blood Pressure 143/79 H 136/80 133/77 Pulse Oximetry 96 97 96 07/03/18 12:17 07/03/18 14:10 07/03/18 16:00 Temperature 97.5 F L Pulse Rate 65 Respiratory Rate 18 18 16 Blood Pressure 185/94 H Pulse Oximetry 99 07/03/18 17:00 07/03/18 18:02 07/03/18 20:00 Temperature 97.7 F Pulse Rate 72 Respiratory Rate 18 20 Blood Pressure 165/95 H 154/86 H Pulse Oximetry 96 Intake & Output 07/03/18 07/03/18 07/04/18 06:59 18:59 06:59 Intake Total 1350 / 1350 2586 / 2586 Output Total 600 / 600 Balance 750 / 750 2586 / 2586 Weight 63.5 kg Intake: IV 1350 / 1350 1086 / 1086 NS Inj 1,000 ML @ 75 mls/hr IV. 1000 / 1000 736 / 736 CONT .[id number] [facility] Rx#:[id number] Zosyn 3.375 GM Premix 50 ML @ 100 / 100 100 / 100 100 mls/hr IV.SIG Q6H [facility] Rx#: [id number] Vancomycin Inj 1,000 MG In NS 250 / 250 250 / 250 Inj 250 ML @ 250 mls/hr IV.SIG Q12H [facility] Rx#:[id number] Oral 1500 / 1500 Output: Urine 600 / 600 Other: # Voids 2 Date of Last Bowel Movement 07/03/18 Laboratory Results - last 24 hr 07/03/18 14:19 Vancomycin Trough 8.9 Microbiology 07/01/18 09:50 Aerobic Blood Culture - Preliminary Blood - Peripheral No growth in 2 days Anaerobic Blood Culture - Preliminary No growth in 2 days 07/01/18 09:45 Aerobic Blood Culture - Preliminary Blood - Peripheral No growth in 2 days Anaerobic Blood Culture - Preliminary No growth in 2 days 07/01/18 13:55 Gram Stain - Final Fluid - Other Wound Culture - Final S. aureus MRSA Group A beta Strep Impressions Knee X-Ray 07/03/18 00:00 CONCLUSION: Unremarkable plain films of the left knee. Tibia/Fibula X-Ray 07/03/18 00:00 CONCLUSION: The bony structures are grossly intact. Small subcutaneous emphysema at the insect bite site
[2018-07-04] MEDS: Senna/Docusate Sodium 8.6/50 MG Tablet PO SCH ×3 (00:26→21:49)
[2018-07-04] MEDS: Piperacil/Tazo 3.375 GM Premix 50 ML IV.SIG SCH ×3 (01:29→13:09)
[2018-07-04] MEDS: Vancomycin Inj 1,250 MG in Sodium Chlor 0.9% Inj 250 ML IV.SIG SCH ×2 (02:15→13:58)
[2018-07-04] MEDS: ALPRAZolam 0.25 MG Tablet PO PRN ×2 (03:15→22:33)
[2018-07-04] MEDS: Ketorolac Inj 30 MG/ML (IVP) Vial IV.PUSH PRN ×2 (03:16→22:36)
[2018-07-04] MEDS: Heparin - SQ 10,000 UNITS/ML Vial SQ SCH ×2 (08:52→21:40)
[2018-07-04] MEDS: Sodium Chloride 0.9% 2 ML Flush BID IV.FLUSH SCH ×2 (08:59→21:45)
--- NOTE | 2018-07-04 10:24 | P.PN ---
Subjective Interval history: Follow up on patient with LLE cellulitis/abscess. Patient seen and examined. Patient is requesting a nicotine patch. He says the left leg is improving slowly. He continues to have pain in the left leg and left knee. He denies any fever or chills. Physical Exam Vital signs: Vital Signs 07/03/18 12:00 07/03/18 12:17 07/03/18 14:10 Temperature 97.8 F Pulse Rate 60 Respiratory Rate 16 18 18 Blood Pressure 133/77 Pulse Oximetry 96 07/03/18 16:00 07/03/18 17:00 07/03/18 18:02 Temperature 97.5 F L Pulse Rate 65 Respiratory Rate 16 18 Blood Pressure 185/94 H 165/95 H Pulse Oximetry 99 07/03/18 20:00 07/04/18 00:00 07/04/18 04:00 Temperature 97.7 F 97.6 F 98.2 F Pulse Rate 72 63 54 L Respiratory Rate 20 21 20 Blood Pressure 154/86 H 118/74 151/84 H Pulse Oximetry 96 95 96 07/04/18 08:16 Temperature 97.6 F Pulse Rate 60 Respiratory Rate 20 Blood Pressure 162/80 H Pulse Oximetry 95 Intake & Output 07/03/18 07/04/18 07/04/18 18:59 06:59 18:59 Intake Total 2586 / 2586 362.5 / 362.5 50 / 50 Output Total 800 / 800 Balance 2586 / 2586 -437.5 / -437.5 50 / 50 Weight 63.2 kg Intake: IV 1086 / 1086 362.5 / 362.5 50 / 50 NS Inj 1,000 ML @ 75 mls/hr IV. 736 / 736 CONT .[id number] [facility] Rx#:[id number] Zosyn 3.375 GM Premix 50 ML @ 100 / 100 100 / 100 50 / 50 100 mls/hr IV.SIG Q6H [facility] Rx#: [id number] Vancomycin Inj 1,000 MG In NS 250 / 250 Inj 250 ML @ 250 mls/hr IV.SIG Q12H [facility] Rx#:[id number] Vancomycin Inj 1,250 MG In NS 262.5 / 262.5 Inj 250 ML @ 250 mls/hr IV.SIG Q12H [facility] Rx#:[id number] Oral 1500 / 1500 Output: Urine 800 / 800 Other: # Voids 2 Date of Last Bowel Movement 07/03/18 07/03/18 Narrative: GENERAL: Thin well developed male patient, INAD. Awake and alert. Appears comfortable. SKIN: Warm and dry. +open wound left lower leg over lateral aspect of the coy , +erythema, warmth and edema, tender to palpation, appears much improved with decreasing size of wound opening, less erythema. +scant amount of seropurulent drainage noted on dressing. HEENT: Atraumatic. Normocephalic. Pupils equal and round. No scleral icterus. No injection or drainage. No nasal bleeding or discharge. Mucous membranes pink and moist. NECK: Trachea midline. CARDIOVASCULAR: Regular rate and rhythm. RESPIRATORY: No accessory muscle use. Clear to auscultation. Breath sounds equal bilaterally. GASTROINTESTINAL: Abdomen soft, non-tender, nondistended. +BS. MUSCULOSKELETAL: Extremities without clubbing, cyanosis, or edema. No obvious deformities. NEUROLOGICAL: Awake and alert. No obvious cranial nerve deficits. Motor grossly within normal limits. Able to move all extremities spontaneously. Normal speech. PSYCHIATRIC: Appropriate mood and affect. Results - Labs CBC & Chem 7: 07/02/18 04:25 07/04/18 05:50 Laboratory Results - last 24 hr 07/03/18 07/04/18 14:19 05:50 BUN 5 L Creatinine 0.93 Estimated GFR 84 L Vancomycin Trough 8.9 Microbiology 07/01/18 09:50 Blood - Peripheral Aerobic Blood Culture - Preliminary No growth in 2 days 07/01/18 09:50 Blood - Peripheral Anaerobic Blood Culture - Preliminary No growth in 2 days 07/01/18 09:45 Blood - Peripheral Aerobic Blood Culture - Preliminary No growth in 2 days 07/01/18 09:45 Blood - Peripheral Anaerobic Blood Culture - Preliminary No growth in 2 days 07/01/18 13:55 Fluid - Other Gram Stain - Final 07/01/18 13:55 Fluid - Other Wound Culture - Final S. aureus MRSA Group A beta Strep - Imaging Impressions Knee X-Ray 07/03/18 00:00 CONCLUSION: Unremarkable plain films of the left knee. Tibia/Fibula X-Ray 07/03/18 00:00 CONCLUSION: The bony structures are grossly intact. Small subcutaneous emphysema at the insect bite site Assessment and Plan - Plan 58 y/o male with no significant past medical history who presented to ER with swelling , redness and pain to the left leg. Sepsis with tachycardia, leukocytosis with white count of 17.7 secondary to LLE abscess, resolved -white count improved to 9.4 -patient is afebrile, continue to monitor vitals -continue on IV antibiotics LLE cellulitis/abscess, ? spider bite soft tissue US diffuse subcutaneous edema with focal fluid collection Wound cx + MRSA and Group A beta Strep xray left tibia and left knee unremarkable, images reviewed by me -General surgery following, appreciate assistance. Continue wound care per Dr. Calvin's instructions. -Infectious disease following, appreciate assistance. Zosyn discontinued. Continue on IV vancomycin. If continued improvement, likely discharge tomorrow on oral Keflex 500mg QID and doxycycline 100mg BID -keep left leg elevated -pain medication with bowel regimen. Ultram prn. Hypertension -start on Norvasc -Clonidine prn with parameters -continue to monitor BP and adjust treatment accordingly Hyponatremia, mild -monitor Na level as indicated Cocaine use -Discussed cessation of illicit drug use Ongoing tobaccoism -Discussed smoking cessation -Nicotine patch ordered DVT prophylaxis -Heparin Discussed Condition With: patient, nursing staff, Dr. Yoo Discharge Planning: Not ready for discharge. Discharge pending clinical improvement, GS and ID clearance
[2018-07-04] MEDS ORDERED: hydrALAZINE 25 MG Tablet PO ONE (12:00)
--- NOTE | 2018-07-04 14:13 | P.PNID ---
Subjective Remarks: improving no fever no leukocytosis Antibiotics: zosyn vancomycin Allergies/Adverse Reactions: Allergies No Known Allergies Allergy (Uncoded 07/01/18 09:50) NONE Objective Vital Signs 07/03/18 14:10 07/03/18 16:00 07/03/18 17:00 Temperature 97.5 F L Pulse Rate 65 Respiratory Rate 18 16 18 Blood Pressure 185/94 H Pulse Oximetry 99 07/03/18 18:02 07/03/18 20:00 07/04/18 00:00 Temperature 97.7 F 97.6 F Pulse Rate 72 63 Respiratory Rate 20 21 Blood Pressure 165/95 H 154/86 H 118/74 Pulse Oximetry 96 95 07/04/18 04:00 07/04/18 08:16 07/04/18 11:31 Temperature 98.2 F 97.6 F 98.6 F Pulse Rate 54 L 60 70 Respiratory Rate 20 20 18 Blood Pressure 151/84 H 162/80 H 160/87 H Pulse Oximetry 96 95 100 Intake & Output 07/03/18 07/04/18 07/04/18 18:59 06:59 18:59 Intake Total 2586 / 2586 362.5 / 362.5 100 / 100 Output Total 800 / 800 Balance 2586 / 2586 -437.5 / -437.5 100 / 100 Weight 63.2 kg Intake: IV 1086 / 1086 362.5 / 362.5 100 / 100 NS Inj 1,000 ML @ 75 mls/hr IV. 736 / 736 CONT .[id number] [facility] Rx#:[id number] Zosyn 3.375 GM Premix 50 ML @ 100 / 100 100 / 100 100 / 100 100 mls/hr IV.SIG Q6H [facility] Rx#: [id number] Vancomycin Inj 1,000 MG In NS 250 / 250 Inj 250 ML @ 250 mls/hr IV.SIG Q12H [facility] Rx#:[id number] Vancomycin Inj 1,250 MG In NS 262.5 / 262.5 Inj 250 ML @ 250 mls/hr IV.SIG Q12H [facility] Rx#:[id number] Oral 1500 / 1500 Output: Urine 800 / 800 Other: # Voids 2 Date of Last Bowel Movement 07/03/18 07/03/18 07/01/18 09:50 Blood - Peripheral Aerobic Blood Culture - Preliminary No growth in 3 days 07/01/18 09:50 Blood - Peripheral Anaerobic Blood Culture - Preliminary No growth in 3 days 07/01/18 09:45 Blood - Peripheral Aerobic Blood Culture - Preliminary No growth in 3 days 07/01/18 09:45 Blood - Peripheral Anaerobic Blood Culture - Preliminary No growth in 3 days 07/01/18 13:55 Fluid - Other Gram Stain - Final 07/01/18 13:55 Fluid - Other Wound Culture - Final S. aureus MRSA Group A beta Strep Lab - Chemistry Results 07/04/18 05:50 BUN 5 L Creatinine 0.93 Estimated GFR 84 L Imaging: ITS Impressions Lower Extremity Ultrasound 07/01/18 00:00 CONCLUSION: 1. Diffuse subcutaneous edema with more focal fluid collection as above which can represent a developing abscess. Knee X-Ray 07/03/18 00:00 CONCLUSION: Unremarkable plain films of the left knee. Tibia/Fibula X-Ray 07/03/18 00:00 CONCLUSION: The bony structures are grossly intact. Small subcutaneous emphysema at the insect bite site Physical Exam: GENERAL: NAD SKIN: Warm and dry. No rash CARDIOVASCULAR: Regular rate and rhythm. No murmurs RESPIRATORY: No accessory muscle use. Clear to auscultation. Breath sounds equal bilaterally. GASTROINTESTINAL: Abdomen soft, non-tender, nondistended. Hepatic and splenic margins not palpable. MUSCULOSKELETAL: Extremities without clubbing, cyanosis, or edema. + left calf edema, erythema, mild around the wound - improved Wound with mild seropurulent drainage NEUROLOGICAL: Awake and alert. Non focal PSYCHIATRIC: cooperative Assessment and Plan - Plan ABscess, sp bedside drainage infected with GAS, MRSA cont vanco dc zosyn If better tommorrw will dc on Keflex 500 qid + doxycycline 100 bid
--- NOTE | 2018-07-04 14:39 | P.PNVS ---
Subjective Subjective/Hospital Course: 07/02/2018 Patient states that about 4-5 days ago he was bitten by some insect and started developing swelling in the left lower extremity which is now pretty extensive and started to drain purulent material as the consultation Physical examination reveals diffuse cellulitis of the left lower extremity lateral aspect in the area of skin erosion with underlying abscess that is already draining. Abscesses is measuring about 1 x 3 cm longitudinal groove appearing structure and going to subcutaneous tissue There is some skin tissue bridging at and this is been open at the bedside and drained Area irrigated with peroxide and packed Patient should remain on intravenous antibiotics till cultures of back and depending on the cultures this can be adjusted Wound care orders given Most likely this is going to heal on its own but will take a while, but patient might need additional debridement if infected area does not start healing will follow 07/03/2018 Cellulitis less prominent Swelling decreased should continue antibiotics Objective Vital Signs / I&O: Vital Signs 07/03/18 16:00 07/03/18 17:00 07/03/18 18:02 Temperature 97.5 F L Pulse Rate 65 Respiratory Rate 16 18 Blood Pressure 185/94 H 165/95 H Pulse Oximetry 99 07/03/18 20:00 07/04/18 00:00 07/04/18 04:00 Temperature 97.7 F 97.6 F 98.2 F Pulse Rate 72 63 54 L Respiratory Rate 20 21 20 Blood Pressure 154/86 H 118/74 151/84 H Pulse Oximetry 96 95 96 07/04/18 08:16 07/04/18 11:31 Temperature 97.6 F 98.6 F Pulse Rate 60 70 Respiratory Rate 20 18 Blood Pressure 162/80 H 160/87 H Pulse Oximetry 95 100 Intake & Output 07/03/18 07/04/18 07/04/18 18:59 06:59 18:59 Intake Total 2586 / 2586 362.5 / 362.5 100 / 100 Output Total 800 / 800 Balance 2586 / 2586 -437.5 / -437.5 100 / 100 Weight 63.2 kg Intake: IV 1086 / 1086 362.5 / 362.5 100 / 100 NS Inj 1,000 ML @ 75 mls/hr IV. 736 / 736 CONT .[id number] [facility] Rx#:[id number] Zosyn 3.375 GM Premix 50 ML @ 100 / 100 100 / 100 100 / 100 100 mls/hr IV.SIG Q6H [facility] Rx#: [id number] Vancomycin Inj 1,000 MG In NS 250 / 250 Inj 250 ML @ 250 mls/hr IV.SIG Q12H [facility] Rx#:[id number] Vancomycin Inj 1,250 MG In NS 262.5 / 262.5 Inj 250 ML @ 250 mls/hr IV.SIG Q12H [facility] Rx#:[id number] Oral 1500 / 1500 Output: Urine 800 / 800 Other: # Voids 2 Date of Last Bowel Movement 07/03/18 07/03/18 Laboratory Results - last 24 hr 07/03/18 07/04/18 14:19 05:50 BUN 5 L Creatinine 0.93 Estimated GFR 84 L Vancomycin Trough 8.9 Microbiology 07/01/18 09:50 Aerobic Blood Culture - Preliminary Blood - Peripheral No growth in 3 days Anaerobic Blood Culture - Preliminary No growth in 3 days 07/01/18 09:45 Aerobic Blood Culture - Preliminary Blood - Peripheral No growth in 3 days Anaerobic Blood Culture - Preliminary No growth in 3 days Impressions Knee X-Ray 07/03/18 00:00 CONCLUSION: Unremarkable plain films of the left knee. Tibia/Fibula X-Ray 07/03/18 00:00 CONCLUSION: The bony structures are grossly intact. Small subcutaneous emphysema at the insect bite site
[2018-07-04] MEDS ORDERED: amLODIPine 5 MG Tablet PO SCH (15:45)
[2018-07-05] MEDS: Vancomycin Inj 1,250 MG in Sodium Chlor 0.9% Inj 250 ML IV.SIG SCH ×2 (01:27→14:46)
[2018-07-05] MEDS: Heparin - SQ 10,000 UNITS/ML Vial SQ SCH ×2 (08:26→20:22)
[2018-07-05] MEDS: Senna/Docusate Sodium 8.6/50 MG Tablet PO SCH ×2 (08:27→20:25)
[2018-07-05] MEDS: Sodium Chloride 0.9% 2 ML Flush BID IV.FLUSH SCH ×2 (08:27→20:25)
[2018-07-05] MEDS: ALPRAZolam 0.25 MG Tablet PO PRN ×2 (08:39→14:47)
--- NOTE | 2018-07-05 12:24 | P.PN ---
Subjective Interval history: Follow up on patient with LLE cellulitis/abscess. Patient seen and examined. Patient continues to have pain in the left knee and lower leg. States the swelling has improved some. He denies any fevers or chills. He complains of itchy rash on his back. Complains of significant anxiety. Physical Exam Vital signs: Vital Signs 07/04/18 15:27 07/04/18 16:37 07/04/18 16:57 Temperature 97.4 F L Pulse Rate 74 Respiratory Rate 18 18 Blood Pressure 163/91 H 159/89 H Pulse Oximetry 98 07/04/18 17:53 07/04/18 20:00 07/04/18 23:07 Temperature 98.2 F 98.3 F Pulse Rate 75 89 Respiratory Rate 20 20 16 Blood Pressure 149/82 H 160/85 H Pulse Oximetry 95 99 07/04/18 23:59 07/05/18 04:00 07/05/18 09:56 Temperature 97.5 F L 98.2 F 98.3 F Pulse Rate 66 50 L 69 Respiratory Rate 20 20 16 Blood Pressure 111/64 116/69 168/86 H Pulse Oximetry 96 98 98 Intake & Output 07/04/18 07/05/18 07/05/18 18:59 06:59 18:59 Intake Total 1850 / 1850 262.5 / 262.5 Output Total 1000 / 1000 800 / 800 Balance 850 / 850 -537.5 / -537.5 Weight 62 kg Intake: IV 350 / 350 262.5 / 262.5 Zosyn 3.375 GM Premix 50 ML @ 100 / 100 100 mls/hr IV.SIG Q6H [facility] Rx#: [id number] Vancomycin Inj 1,250 MG In NS 250 / 250 262.5 / 262.5 Inj 250 ML @ 250 mls/hr IV.SIG Q12H [facility] Rx#:[id number] Oral 1500 / 1500 Output: Urine 1000 / 1000 800 / 800 Other: Date of Last Bowel Movement 07/03/18 Narrative: GENERAL: Thin well developed male patient, INAD. Awake and alert. Sitting up in bed. SKIN: Warm and dry. +wound left lower leg over lateral aspect of the coy, decreased erythema, +seropurulent drainage, ?necrosis, area of increased induration and tenderness over the superior aspect of the wound. + Pruritic papular rash over back. HEENT: Atraumatic. Normocephalic. Pupils equal and round. No scleral icterus. No injection or drainage. No nasal bleeding or discharge. Mucous membranes pink and moist. NECK: Trachea midline. CARDIOVASCULAR: Regular rate and rhythm. RESPIRATORY: No accessory muscle use. Clear to auscultation. Breath sounds equal bilaterally. GASTROINTESTINAL: Abdomen soft, non-tender, nondistended. +BS. MUSCULOSKELETAL: Extremities without clubbing, cyanosis, or edema. No obvious deformities. NEUROLOGICAL: Awake and alert. No obvious cranial nerve deficits. Motor grossly within normal limits. Able to move all extremities spontaneously. Normal speech. PSYCHIATRIC: Appropriate mood and affect. Results - Labs CBC & Chem 7: 07/02/18 04:25 07/05/18 13:24 Laboratory Results - last 24 hr 07/05/18 08:03 Creatinine 0.96 Estimated GFR 81 L Microbiology 07/01/18 09:50 Blood - Peripheral Aerobic Blood Culture - Preliminary No growth in 4 days 07/01/18 09:50 Blood - Peripheral Anaerobic Blood Culture - Preliminary No growth in 4 days 07/01/18 09:45 Blood - Peripheral Aerobic Blood Culture - Preliminary No growth in 4 days 07/01/18 09:45 Blood - Peripheral Anaerobic Blood Culture - Preliminary No growth in 4 days Assessment and Plan - Plan 58 y/o male with no significant past medical history who presented to ER with swelling , redness and pain to the left leg. Sepsis with tachycardia, leukocytosis with white count of 17.7 secondary to LLE abscess, resolved -white count improved to 9.4 -patient is afebrile, continue to monitor vitals -continue on IV antibiotics LLE cellulitis/abscess, ? spider bite soft tissue US diffuse subcutaneous edema with focal fluid collection Wound cx + MRSA and Group A beta Strep xray left tibia and left knee unremarkable, images reviewed by me -General surgery following, appreciate assistance. Continue wound care per Dr. Calvin's instructions. ?repeat I&D. DW Dr. Clavin, who will re- evaluate the wound later today. -Infectious disease following, appreciate assistance. Continue on IV vancomycin. Once improved, plan to discharge on oral Keflex 500mg QID and doxycycline 100mg BID -keep left leg elevated -pain medication with bowel regimen. Ultram prn. Hypertension, not well controlled -increase Norvasc to 5mg daily -Clonidine prn with parameters -continue to monitor BP and adjust treatment accordingly Hyponatremia, mild -monitor Na level as indicated Cocaine use -Discussed cessation of illicit drug use Ongoing tobaccoism -Discussed smoking cessation -Nicotine patch ordered Pruritic back rash, suspect heat rash -Hydrocortisone topical application twice daily -Benadryl 25 mg every 6 as needed DVT prophylaxis -Heparin Discussed Condition With: patient, nursing staff, Dr. Yoo Discharge Planning: Not ready for discharge. Discharge pending clinical improvement, GS and ID clearance
[2018-07-05] MEDS ORDERED: Pharmacy Ordered Lab Info OTHER ONE (13:45)
[2018-07-05 14:23] LABS: Vancomycin,Trough 12.1 mcg/mL (5.0-10.0)
--- NOTE | 2018-07-05 14:34 | P.PNID ---
Subjective Remarks: co pain @ L coy no fever Antibiotics: vancomycin Allergies/Adverse Reactions: Allergies No Known Allergies Allergy (Uncoded 07/01/18 09:50) NONE Objective Vital Signs 07/04/18 15:27 07/04/18 16:37 07/04/18 16:57 Temperature 97.4 F L Pulse Rate 74 Respiratory Rate 18 18 Blood Pressure 163/91 H 159/89 H Pulse Oximetry 98 07/04/18 17:53 07/04/18 20:00 07/04/18 23:07 Temperature 98.2 F 98.3 F Pulse Rate 75 89 Respiratory Rate 20 20 16 Blood Pressure 149/82 H 160/85 H Pulse Oximetry 95 99 07/04/18 23:59 07/05/18 04:00 07/05/18 09:56 Temperature 97.5 F L 98.2 F 98.3 F Pulse Rate 66 50 L 69 Respiratory Rate 20 20 16 Blood Pressure 111/64 116/69 168/86 H Pulse Oximetry 96 98 98 07/05/18 13:16 Temperature 98.5 F Pulse Rate 66 Respiratory Rate 20 Blood Pressure 185/94 H Pulse Oximetry Intake & Output 07/04/18 07/05/18 07/05/18 18:59 06:59 18:59 Intake Total 1850 / 1850 262.5 / 262.5 Output Total 1000 / 1000 800 / 800 Balance 850 / 850 -537.5 / -537.5 Weight 62 kg Intake: IV 350 / 350 262.5 / 262.5 Zosyn 3.375 GM Premix 50 ML @ 100 / 100 100 mls/hr IV.SIG Q6H [facility] Rx#: [id number] Vancomycin Inj 1,250 MG In NS 250 / 250 262.5 / 262.5 Inj 250 ML @ 250 mls/hr IV.SIG Q12H [facility] Rx#:[id number] Oral 1500 / 1500 Output: Urine 1000 / 1000 800 / 800 Other: Date of Last Bowel Movement 07/03/18 07/01/18 09:50 Blood - Peripheral Aerobic Blood Culture - Preliminary No growth in 4 days 07/01/18 09:50 Blood - Peripheral Anaerobic Blood Culture - Preliminary No growth in 4 days 07/01/18 09:45 Blood - Peripheral Aerobic Blood Culture - Preliminary No growth in 4 days 07/01/18 09:45 Blood - Peripheral Anaerobic Blood Culture - Preliminary No growth in 4 days 07/01/18 13:55 Fluid - Other Gram Stain - Final 07/01/18 13:55 Fluid - Other Wound Culture - Final S. aureus MRSA Group A beta Strep Lab - Chemistry Results 07/04/18 07/05/18 07/05/18 05:50 08:03 13:24 BUN 5 L 6 L Creatinine 0.93 0.96 Estimated GFR 84 L 81 L Imaging: ITS Impressions Lower Extremity Ultrasound 07/01/18 00:00 CONCLUSION: 1. Diffuse subcutaneous edema with more focal fluid collection as above which can represent a developing abscess. Knee X-Ray 07/03/18 00:00 CONCLUSION: Unremarkable plain films of the left knee. Tibia/Fibula X-Ray 07/03/18 00:00 CONCLUSION: The bony structures are grossly intact. Small subcutaneous emphysema at the insect bite site Physical Exam: GENERAL: NAD SKIN: Warm and dry. No rash CARDIOVASCULAR: Regular rate and rhythm. No murmurs RESPIRATORY: No accessory muscle use. Clear to auscultation. Breath sounds equal bilaterally. GASTROINTESTINAL: Abdomen soft, non-tender, nondistended. Hepatic and splenic margins not palpable. MUSCULOSKELETAL: Extremities without clubbing, cyanosis, or edema. + left calf edema, erythema, mild around the wound - improved Wound with mild seropurulent drainage + some white necrotic tissue present NEUROLOGICAL: Awake and alert. Non focal PSYCHIATRIC: cooperative Assessment and Plan - Plan ABscess, sp bedside drainage infected with GAS, MRSA -still quite putrulent and painfull cont vanco ? another bedside I+D - Dr Dozier is ff If better tommorrw will dc on Keflex 500 qid + doxycycline 100 bid herve HUMMEL
--- NOTE | 2018-07-05 14:38 | P.PN ---
Physical Exam Vital signs: Vital Signs 07/04/18 15:27 07/04/18 16:37 07/04/18 16:57 Temperature 97.4 F L Pulse Rate 74 Respiratory Rate 18 18 Blood Pressure 163/91 H 159/89 H Pulse Oximetry 98 07/04/18 17:53 07/04/18 20:00 07/04/18 23:07 Temperature 98.2 F 98.3 F Pulse Rate 75 89 Respiratory Rate 20 20 16 Blood Pressure 149/82 H 160/85 H Pulse Oximetry 95 99 07/04/18 23:59 07/05/18 04:00 07/05/18 09:56 Temperature 97.5 F L 98.2 F 98.3 F Pulse Rate 66 50 L 69 Respiratory Rate 20 20 16 Blood Pressure 111/64 116/69 168/86 H Pulse Oximetry 96 98 98 07/05/18 13:16 Temperature 98.5 F Pulse Rate 66 Respiratory Rate 20 Blood Pressure 185/94 H Pulse Oximetry Intake & Output 07/04/18 07/05/18 07/05/18 18:59 06:59 18:59 Intake Total 1850 / 1850 262.5 / 262.5 Output Total 1000 / 1000 800 / 800 700 / 700 Balance 850 / 850 -537.5 / -537.5 -700 / -700 Weight 62 kg Intake: IV 350 / 350 262.5 / 262.5 Zosyn 3.375 GM Premix 50 ML @ 100 / 100 100 mls/hr IV.SIG Q6H [facility] Rx#: [id number] Vancomycin Inj 1,250 MG In NS 250 / 250 262.5 / 262.5 Inj 250 ML @ 250 mls/hr IV.SIG Q12H [facility] Rx#:[id number] Oral 1500 / 1500 Output: Urine 1000 / 1000 800 / 800 700 / 700 Other: # Voids 1 Date of Last Bowel Movement 07/03/18 07/05/18 # Bowel Movements 1 Results - Labs CBC & Chem 7: 07/02/18 04:25 07/05/18 13:24 Laboratory Results - last 24 hr 07/05/18 07/05/18 08:03 13:24 BUN 6 L Creatinine 0.96 Estimated GFR 81 L Vancomycin Trough 12.1 H Microbiology 07/01/18 09:50 Blood - Peripheral Aerobic Blood Culture - Preliminary No growth in 4 days 07/01/18 09:50 Blood - Peripheral Anaerobic Blood Culture - Preliminary No growth in 4 days 07/01/18 09:45 Blood - Peripheral Aerobic Blood Culture - Preliminary No growth in 4 days 07/01/18 09:45 Blood - Peripheral Anaerobic Blood Culture - Preliminary No growth in 4 days Assessment and Plan - Plan 58 y/o male with no significant past medical history who presented to ER with swelling , redness and pain to the left leg. Sepsis with tachycardia, leukocytosis with white count of 17.7 secondary to LLE abscess, resolved -white count improved to 9.4 -patient is afebrile, continue to monitor vitals -continue on IV antibiotics LLE cellulitis/abscess, ? spider bite soft tissue US diffuse subcutaneous edema with focal fluid collection Wound cx + MRSA and Group A beta Strep xray left tibia and left knee unremarkable, images reviewed by me -General surgery following, appreciate assistance. Continue wound care per Dr. Calvin's instructions. -Infectious disease following, appreciate assistance. Zosyn discontinued. Continue on IV vancomycin. If continued improvement, likely discharge tomorrow on oral Keflex 500mg QID and doxycycline 100mg BID -keep left leg elevated -pain medication with bowel regimen. Ultram prn. Hypertension -start on Norvasc -Clonidine prn with parameters -continue to monitor BP and adjust treatment accordingly Hyponatremia, mild -monitor Na level as indicated Cocaine use -Discussed cessation of illicit drug use Ongoing tobaccoism -Discussed smoking cessation -Nicotine patch ordered DVT prophylaxis -Heparin Discharge Planning: Not ready for discharge. Discharge pending clinical improvement, GS and ID clearance
[2018-07-05] MEDS ORDERED: amLODIPine 5 MG Tablet PO ONE (15:41)
[2018-07-05] MEDS: Acetaminophen 325 MG Tablet PO PRN (16:11)
--- NOTE | 2018-07-05 20:50 | P.PNVS ---
Subjective Subjective/Hospital Course: 07/02/2018 Patient states that about 4-5 days ago he was bitten by some insect and started developing swelling in the left lower extremity which is now pretty extensive and started to drain purulent material as the consultation Physical examination reveals diffuse cellulitis of the left lower extremity lateral aspect in the area of skin erosion with underlying abscess that is already draining. Abscesses is measuring about 1 x 3 cm longitudinal groove appearing structure and going to subcutaneous tissue There is some skin tissue bridging at and this is been open at the bedside and drained Area irrigated with peroxide and packed Patient should remain on intravenous antibiotics till cultures of back and depending on the cultures this can be adjusted Wound care orders given Most likely this is going to heal on its own but will take a while, but patient might need additional debridement if infected area does not start healing will follow 07/03/2018 Cellulitis less prominent Swelling decreased should continue antibiotics 07/05/2019 Wound examined There is no fluctuance and no collections patient is draining minimal amount of material and there is fibrin starting to cover the wound There is nothing to drain or surgically further debride at this point Some of these patients will closed the wound over the cavity and then re- purulent material but I do not see that happening here Objective Vital Signs / I&O: Vital Signs 07/04/18 23:07 07/04/18 23:59 07/05/18 04:00 Temperature 97.5 F L 98.2 F Pulse Rate 66 50 L Respiratory Rate 16 20 20 Blood Pressure 111/64 116/69 Pulse Oximetry 96 98 07/05/18 09:56 07/05/18 13:16 07/05/18 16:25 Temperature 98.3 F 98.5 F 98.0 F Pulse Rate 69 66 69 Respiratory Rate 16 20 Blood Pressure 168/86 H 185/94 H 128/72 Pulse Oximetry 98 99 100 07/05/18 19:28 Temperature 97.6 F Pulse Rate 67 Respiratory Rate 19 Blood Pressure 168/90 H Pulse Oximetry 97 Intake & Output 07/05/18 07/05/18 07/06/18 06:59 18:59 06:59 Intake Total 262.5 / 262.5 262.5 / 262.5 Output Total 800 / 800 700 / 700 Balance -537.5 / -537.5 -437.5 / -437.5 Weight 62 kg Intake: IV 262.5 / 262.5 262.5 / 262.5 Vancomycin Inj 1,250 MG In NS 262.5 / 262.5 262.5 / 262.5 Inj 250 ML @ 250 mls/hr IV.SIG Q12H [facility] Rx#:[id number] Output: Urine 800 / 800 700 / 700 Other: # Voids 5 Date of Last Bowel Movement 07/05/18 # Bowel Movements 1 Laboratory Results - last 24 hr 07/05/18 07/05/18 08:03 13:24 BUN 6 L Creatinine 0.96 Estimated GFR 81 L Vancomycin Trough 12.1 H Microbiology 07/01/18 09:50 Aerobic Blood Culture - Preliminary Blood - Peripheral No growth in 4 days Anaerobic Blood Culture - Preliminary No growth in 4 days 07/01/18 09:45 Aerobic Blood Culture - Preliminary Blood - Peripheral No growth in 4 days Anaerobic Blood Culture - Preliminary No growth in 4 days
[2018-07-06 00:56] VITALS: RESP 20; TEMP 97.5; O2SAT 96
[2018-07-06] MEDS: Vancomycin Inj 1,250 MG in Sodium Chlor 0.9% Inj 250 ML IV.SIG SCH (01:34)
[2018-07-06] MEDS: Acetaminophen 325 MG Tablet PO PRN (02:00)
[2018-07-06] MEDS: ALPRAZolam 0.25 MG Tablet PO PRN (02:00)
[2018-07-06 04:24] VITALS: BP 112/68; PULSE 75
--- NOTE | 2018-07-06 15:01 | P.DS ---
Date of admission: 07/04/18 14:54 Primary care physician: No Primary Care Physician Attending physician on discharge: Marquita Yoo Brief History from admission: patient is a 58 y/o male with no significant past medical history who presented to ER with swelling , redness and pain to the left leg. 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 he says that he noticed some swelling and redness over the lateral aspect of his left leg about a week ago. but it started to get worse two days ago and he started to have moderate to severe pain at the site along with fever and chills. he says that ' it started to drain on its own'.he says that he had some infection of the left elbow about a month ago which seems to be healing. Patient update on day of discharge: Patient not seen. Patient left AMA prior to encounter. This record is for informational purposes only. DS: Diagnosis - Discharge Diagnosis (1) Cellulitis Status: Acute (2) Abscess of leg without foot, left Status: Acute (3) Hyponatremia Status: Acute (4) Cocaine use Status: Acute (5) Hypertension Status: Acute (6) SIRS (systemic inflammatory response syndrome) Status: Acute DS: Summary Hospital Course: Patient admitted with SIRS/sepsis with tachycardia, leukocytosis with a white count of 17.7 secondary to left lower extremity abscess. Soft tissue ultrasound revealed diffuse subcutaneous edema with focal fluid collection. Patient started on broad-spectrum IV antibiotics. Patient seen in consultation by general surgery and bedside I&D was performed which ultimately grew MRSA and group A beta strep. Patient was seen in consultation by infectious disease and was continued on IV vancomycin. Urine drug screen was positive for cocaine, patient was counseled on cessation. Patient was also started on Norvasc for hypertension. Patient decided to leave AMA prior to completion of medical treatment. Patient not seen on the day he decided to leave AMA. This record is for informational purposes only. - Time Spent with Patient Total time spent providing and/or coordinating discharge services: Less than 30 minutes - Quality: VTE Deep Vein Thrombosis/Pulmonary Embolism Present on Admission: No Exam Vital signs: Vital Signs 07/05/18 16:25 07/05/18 19:28 07/05/18 20:00 Temperature 98.0 F 97.6 F Pulse Rate 69 67 Respiratory Rate 19 16 Blood Pressure 128/72 168/90 H Pulse Oximetry 100 97 09/28/18 00:00 07/06/18 04:00 Temperature 97.5 F L 97.5 F L Pulse Rate 65 75 Respiratory Rate 20 20 Blood Pressure 157/80 H 112/68 Pulse Oximetry 96 96 Intake & Output 07/05/18 07/06/18 07/06/18 18:59 06:59 18:59 Intake Total 262.5 / 262.5 2032.5 / 2032.5 Output Total 700 / 700 Balance -437.5 / -437.5 2032.5 / 2032.5 Weight 61.689 kg Intake: IV 262.5 / 262.5 262.5 / 262.5 Vancomycin Inj 1,250 MG In NS 262.5 / 262.5 262.5 / 262.5 Inj 250 ML @ 250 mls/hr IV.SIG Q12H RANULFO Rx#:[id number] Oral 1770 / 1770 Output: Urine 700 / 700 Other: # Voids 5 4 Date of Last Bowel Movement 07/05/18 07/05/18 # Bowel Movements 1 Weight On Admission 61.689 kg Narrative: Patient left AMA prior to being seen Results Procedures completed during hospitalization: Bedside I&D performed by Dr. Calvin 07/02/18 - Impressions ITS Impressions Lower Extremity Ultrasound 07/01/18 00:00 CONCLUSION: 1. Diffuse subcutaneous edema with more focal fluid collection as above which can represent a developing abscess. Knee X-Ray 07/03/18 00:00 CONCLUSION: Unremarkable plain films of the left knee. Tibia/Fibula X-Ray 07/03/18 00:00 CONCLUSION: The bony structures are grossly intact. Small subcutaneous emphysema at the insect bite site Discharge Plan - Discharge Disposition Patient Disposition: Against Medical Advice - Discharge Condition Condition: Stable - Discharge Order Discharge Orders: AMA Discharge (Routine); Ordered 07/06/18 Ordered By: Ana Rosa Garcia - Discharge Details Anticipated Discharge Date: 07/05/18 Discharge Comment: Discharge once cleared by ID and labs result - Physicians Team Primary Care Provider: Primary Care Marielai,Lissa Attending Provider: Marquita Yoo Other Providers: Jason Calvin MD ; Ragini Valle MD
== END 2018-07-06 07:28 | disposition left against medical advice (07) ==
LOC: NEDA 09:22 → NEPD 09:22 → NEPHCDU 14:16
PROVIDERS: ADMIT Family Medicine; ATTEND Family Medicine